=== PATIENT | male | born 1990 | race Caucasian/White ===

== ENCOUNTER 2022-04-04 23:38 | Emergency (ER) | payer SELFPAY ==
[2022-04-04 23:41] VITALS: BP 129/77; PULSE 90; RESP 19; TEMP 36.3; O2SAT 97
--- NOTE | 2022-04-05 | ED.EAR ---
HPI - Ear Problem General Chief complaint: Ear Stated complaint: bruce ear pain Time Seen by Provider: 04/04/22 23:46 History of Present Illness HPI Narrative: 31-year-old male presented to the emergency department for evaluation of bilateral ear pain. Patient states initially he began having left ear pain but over the last few days he has had pain in the right ear as well. 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 Patient states that he has been working greater than twelve hours a day and has been wearing ear protection all day long. Related Data Allergies Allergy/AdvReac Type Severity Reaction Status Date / Time No Known Allergies Allergy Verified 04/05/22 00:12 Review of Systems Review of Systems: CONSTITUTIONAL: Denies fever, chills, or sweats. EYES: Denies visual changes, redness, or discharge. ENT: Bilateral ear pain CARDIOVASCULAR: Denies chest pain, palpitations, or edema. RESPIRATORY: Denies cough or dyspnea. GASTROINTESTINAL: Denies abdominal pain, nausea, vomiting, or diarrhea. GENITOURINARY: Denies dysuria or hematuria. SKIN: Denies rash or itching. MUSCULOSKELETAL: Denies back pain, joint pain, or myalgia. NEUROLOGIC: Denies headache, numbness, or weakness. Exam Narrative: APPEARANCE: Well appearing, no pain, no distress, well-nourished. HEAD: normocephalic, atraumatic. EYES: PERRLA/EOMI, conjunctivae clear. NOSE: Normal no drainage EARS: Bilateral TM erythema worse on left. Some erythema of the external canal of the right ear. THROAT: Pharynx clear, no exudate. NECK: Supple. No adenopathy, no masses. MUSCULOSKELETAL: Moves all extremities. Strength/ROM intact, No edema, No calf tenderness. NEURO: Alert. Cranial nerves II through XII intact. Good gait. Good coordination SKIN: Warm, dry. Normal Color Course Course Emergency Course: Patient was started on Augmentin for bilateral ear infection. Patient was advised to use over the ear ear protection rather than in the ear ear protection. Patient was encouraged to follow-up with his primary care physician once he gets home. All questions and concerns were addressed. Vital Signs Vital signs: Vital Signs Temperature 97.4 F L 04/04/22 23:41 Pulse Rate 90 04/04/22 23:41 Respiratory Rate 19 04/04/22 23:41 Blood Pressure 129/77 04/04/22 23:41 Pulse Oximetry 97 04/04/22 23:41 Oxygen Delivery Room Air 04/04/22 23:41 Temperature 97.4 F L 04/04/22 23:41 Pulse Rate 82 04/05/22 00:38 Respiratory Rate 16 04/05/22 00:38 Blood Pressure 126/92 H 04/05/22 00:38 Pulse Oximetry 97 04/05/22 00:38 Oxygen Delivery Room Air 04/04/22 23:41 Medical Decision Making Vital Signs Vital Signs: Vital Signs Temperature 97.4 F L 04/04/22 23:41 Pulse Rate 90 04/04/22 23:41 Respiratory Rate 19 04/04/22 23:41 Blood Pressure 129/77 04/04/22 23:41 Pulse Oximetry 97 04/04/22 23:41 Oxygen Delivery Room Air 04/04/22 23:41 Temperature 97.4 F L 04/04/22 23:41 Pulse Rate 82 04/05/22 00:38 Respiratory Rate 16 04/05/22 00:38 Blood Pressure 126/92 H 04/05/22 00:38 Pulse Oximetry 97 04/05/22 00:38 Oxygen Delivery Room Air 04/04/22 23:41 Discharge Plan Discharge Clinical Impression: Otitis media Patient Disposition: Home, Self-Care Condition: Stable Instructions: Antibiotic Form, Ear Infection (ED) Additional Instructions: Tylenol and ibuprofen for pain control. Decongestant as directed. Antibiotics as directed until completed. Have close follow-up with your primary care physician. Prescriptions: New amoxicillin-pot clavulanate 875-125 mg tablet 1 tablet PO Q12H Qty: 14 0RF Follow-up/Referrals: PHYSICIAN,IMMIGRATION OFFICER [Primary Care Provider] -
[2022-04-05] MEDS: HYDROcodone/acetaminophen (*CRX) 5-325 MG TABLET 1 TAB PO (00:13)
[2022-04-05] MEDS: AMOXICILLIN/CLAVULANATE K 875-125 MG TAB 1 TABLET PO (00:13)
[2022-04-05] MEDS: KETOROLAC 30 MG/ML VIAL (*BKC) IM (00:14)
[2022-04-05 00:38] VITALS: BP 126/92; PULSE 82; RESP 16; O2SAT 97
== END 2022-04-05 00:39 | disposition home or self-care (01) ==
LOC: ANHED 04-05 00:22
PROVIDERS: Emergency Provider Emergency Medicine
DX: H66.93 Otitis media, unspecified, bilateral (principal)
CPT/HCPCS: 96372; 99283; A9270; J1885